=== PATIENT | male | born 1985 | race African-American/Black ===

== ENCOUNTER 2019-09-23 09:39 | Emergency (ER) | payer MEDICARE, MEDICAID ==
[~2019-09-23] VITALS: Ht 182.9 cm; Wt 77.0 kg
[2019-09-23 15:19] VITALS: BP 140/70
[2019-09-24] MEDS ORDERED: OLANZAPINE 5MG TABLET PO SCH (09:00)
== END 2019-09-23 18:06 | disposition home or self-care (01) ==
LOC: ER 09:39
DX: F19.10 Other psychoactive substance abuse, uncomplicated (principal); R40.4 Transient alteration of awareness; F15.129 Other stimulant abuse with intoxication, unspecified; R00.0 Tachycardia, unspecified
CPT/HCPCS: 82962; 93005; 99283

== ENCOUNTER 2020-10-07 07:46 | Emergency (ER) | payer MEDICARE, MEDICAID ==
[~2020-10-07] VITALS: Ht 172.7 cm; Wt 82.0 kg
[2020-10-07 07:50] VITALS: BP 130/72
[2020-10-07] MEDS ORDERED: ACETAMINOPHEN 325MG TABLET PO ONE (10:30)
[2020-10-07] MEDS ORDERED: TOPUD MT (11:05)
== END 2020-10-07 11:26 | disposition home or self-care (01) ==
LOC: ER 07:46
DX: R51.9 Headache, unspecified (principal); Z87.828 Personal history of other (healed) physical injury and trauma
CPT/HCPCS: 99283